=== PATIENT | female | born 1985 | race Caucasian/White ===

== ENCOUNTER 2017-07-04 19:04 | Emergency (ER) | payer MEDICAID, OTHER ==
[2017-07-04 19:36] VITALS: BMI 25.0
--- NOTE | 2017-07-05 01:14 | OBHP ---
Datetime: 07/04/2017 20:04 IP Adm Impression: , intrauterine ; No Active Labor IP Admit Plan: Observation/Evaluation Admit Comment, IP Provider: 32 yo F, , IUP at 20.2 weeks by LMP (02/13/17), u/s unknown. CC: pt slipped on some water that had leaked out of her washing machine apparatus; fell on left si de of body about 2-3 hours ago. care - patient unsure of name/exact location of clinic where she gets care. Stat es she is planning on leaving that clinic once her insurance is active. SHUBHAM: 11/19/17 Vaginal bleeding: no Loss of fluid: no movement: yes Contractions: no Cramping: no Unknown all of the following: GBS, blood type, HIV status, HbsAg status, RPR, GC/Chlamydia, rubel la immunity status, PPD, OBHx: 1 prior , delivered at full term via NVD in 2009, as her patient. States she had el evated blood sugar during the last 2 months of that , controlled with diet. Medical Hx: none Surgical Hx: none Social: smoked during first 2 months of current . Denies current tobacco, alcohol, drug, supplement use. Meds: vitamins NKDA ROS: denies headache, dizziness, chest pain, shortness of breath, n/v/d, burning with urination PE: BP: 111/69 Gen: AAO x3, no acute distress CV: S1/S2, RRR Resp: lungs clear to auscultation bilaterally Abd: gravid, +BS Extremities: no edema, mild tenderness to palpation of L knee FHR: 140s Assesment: 1) IUP at 20.2 weeks 2) unknown pre-albertina care/labs 3) unknown type and screen Plan: 1) Type and Screen 2) KleihauerBetke if ab neg 3) Limited OB u/s : assess placenta, estimate weight, amniotic fluid index Plan discussed with Dr. Polk Re-eval 20:17 Maternal blood type A+ OB U/s showed SLIUP at 21 weeks +/- 1w3d, heart rate 147, + movement, anterior placenta (relationship to os: clear, more than 2cm away), cephalic presentation, adequate amniotic fluid. Patient encouraged to keep her next pre- appointment, even if she is still waiting for her in surance and working on switching pre- providers. Strongly advised against delaying further pre-n atal care. Case discussed with Dr. Felicitas Jaimes MD PGY 1. obh addendum: Patient seen and examined by me agree with above assessment and plan. Extremities - PN: Normal Abdomen - PN: Normal Back - PN: Normal Breast - PN: Not Done Lungs - PN: Normal Heart - PN: Normal Thyroid - PN: Not Done Neurologic - PN: Normal HEENT - PN: Normal General - PN: Normal FHR - Baseline A Provider: 140 EGA AdmitDate IP: 20.2 Vital Signs Provider: Reviewed; Within Normal Limits IP Chief Complaint: Trauma/Fall Genitourinary Exam: Not Done DTRs - PN: Not Done
[2017-07-05 02:47] VITALS: BP 111/70; PULSE 87; RESP 16; TEMP 98; O2SAT 100
--- NOTE | 2017-07-05 07:59 | US ---
PROCEDURE: Second trimester ultrasound HISTORY: IUP 20 weeks, pt fell at home LMP 02/13/2017. COMPARISON: None available. TECHNIQUE: Standard protocol for this study/examination. FINDINGS: Cephalic presentation. Anterior Placenta. No evidence of abruption or previa Gestational age derived from LMP 20 weeks 1 day Gestational age derived from the following biometric parameters 21 weeks . Biparietal diameter 5.12 cm Head [id number] cm Abdominal circumference 16.16 cm Femur length 3.25 cm Estimated weight 378 g Calculated cardiac rate 144 beats per min. Closed cervix measuring 4.68 cm IMPRESSION: Twenty weeks 1 day live intrauterine gestation. SHUBHAM based on LMP: 11/20/2017 SHUBHAM based on biometry: 11/14/2017 Concordant results (preliminary interpretation) provided by [facility]. Procedure Completed: 21:58 Preliminary ([facility]) Report: Dictated and Authenticated: 22:27 Final Interpretation: 07:56. July 05, 2017.
== END 2017-07-04 22:30 | disposition home or self-care (01) ==
LOC: H.EROB2 19:04
DX: O26.92 Pregnancy related conditions, unspecified, second trimester (principal); Z04.3 Encounter for examination and observation following other accident; Z3A.21 21 weeks gestation of pregnancy

== ENCOUNTER 2018-06-28 15:06 | Emergency (ER) | payer MEDICAID ==
[2018-06-28 15:07] VITALS: BMI 25.0
[2018-06-28 15:10] VITALS: BP 141/88; PULSE 82; RESP 16; TEMP 97.9; O2SAT 98
--- NOTE | 2018-06-28 16:24 | ED PDOC ---
HPI: Psych/Substance Abuse Time Seen by Provider: 06/28/18 15:12 Chief Complaint (Nursing): Medical Clearance Chief Complaint (Provider): Medical Clearance ED Caveat: Intoxicated History Per: EMS History/Exam Limitations: intoxication Onset/Duration Of Symptoms: Mins (prior to arrival) Current Symptoms Are (Timing): Still Present Additional History Per: Patient Additional Complaint(s): 33 year old female presents via PD for medical and psychiatric clearance. Patient admits to drinking alcohol but offers no complaints, denying suicidal / homicidal ideation, hallucinations, and alcohol abuse. Secondary to intoxicati on, some patient information is limited, but old charts were reviewed along with nursing information. PMD: Caro Villar Past Medical History Reviewed: Historical Data, Nursing Documentation, Vital Signs Vital Signs: Last Vital Signs Temp 97.9 F 06/28/18 15:09 Pulse 82 06/28/18 15:09 Resp 16 06/28/18 15:09 BP 141/88 06/28/18 15:09 Pulse Ox 98 06/28/18 15:09 - Medical History PMH: Depression - Surgical History Surgical History: No Surg Hx - Family History Family History: States: Unknown Family Hx - Social History Current smoker - smoking cessation education provided: Yes (light) Alcohol: Other (yes, but pt denies alchol abuse) Drugs: Denies - Immunization History Hx Tetanus Toxoid Vaccination: No Hx Influenza Vaccination: No Hx Pneumococcal Vaccination: No - Home Medications Home Medications: Ambulatory Orders Medication Instructions Recorded Vit Calc,Iron,Folic 1 tab PO DAILY 07/04/17 [ Vitamins] - Allergies Allergies/Adverse Reactions: Allergies Allergy/AdvReac Type Severity Reaction Status Date / Time No Known Allergies Allergy Verified 06/28/18 15:09 Review of Systems Review Of Systems: ROS cannot be obtained secondary to pt's inabilty to answer questions. Physical Exam - Reviewed Nursing Documentation Reviewed: Yes Vital Signs Reviewed: Yes - Physical Exam Appears: Positive for: No Acute Distress (but appears intoxicated) Head Exam: Positive for: ATRAUMATIC, NORMOCEPHALIC Skin: Positive for: Normal Color. Negative for: Rash Eye Exam: Positive for: Normal appearance ENT: Positive for: Normal ENT Inspection Neck: Positive for: Normal, Painless ROM, Supple Cardiovascular/Chest: Positive for: Regular Rate, Rhythm Respiratory: Positive for: Normal Breath Sounds. Negative for: Accessory Muscle Use, Respiratory Distress Gastrointestinal/Abdominal: Positive for: Normal Exam, Soft. Negative for: Tenderness Back: Positive for: Normal Inspection. Negative for: L CVA Tenderness, R CVA Tenderness, Vertebral Tenderness Extremity: Positive for: Normal ROM Neurologic/Psych: Positive for: Alert, Oriented (x2), Other (slurred speech, alcohol on breath) - Laboratory Results Result Diagrams: 06/28/18 17:26 06/28/18 17:26 - ECG O2 Sat by Pulse Oximetry: 98 (RA) Pulse Ox Interpretation: Normal Medical Decision Making Medical Decision Making: Time: 1551 Initial Impression: medical and psychiatric clearance Initial Plan: --Alcohol serum --CMP --Drug screen --Crisis eval --U-preg --CBC with differential --Accucheck --Urinalysis Previous medical records reviewed and show that pt sees Dr. Ivey for alcohol abuse, but pt denies this. Case discussed with Annmarie plant and equipment worker who requests that the alcohol level be done before evaluation. Pt. evaluated by Annmarie ALFARO who spoke with Dr. Sun and cleared pt. for incarceration. ---- --------- Scribe Attestation: Documented by Jennifer Hughes, acting as a scribe for Jabier Rudd PA-C Provider Scribe Attestation: All medical record entries made by the Scribe were at my direction and personally dictated by me. I have reviewed the chart and agree that the record accurately reflects my personal performance of the history, physical exam, medical decision making, and the department course for this patient. I have also personally directed, reviewed, and agree with the discharge instructions and di sposition. Disposition - Clinical Impression Clinical Impression: Alcohol abuse - Patient ED Disposition Is Patient to be Admitted: No - Disposition Referrals: [facility] [Outside] Disposition: Routine/Home Disposition Time: 18:23 Condition: STABLE Additional Instructions: PATIENT IS MEDICALLY AND PSYCHIATRICALLY CLEARED FOR INCARCERATION LISA VANDA, thank you for letting us take care of you today. Your provider was Suad Bishop MD and you were treated for ETOH, MED CLEARANCE. The emergency medical care you received today was directed at your acute symptoms. If you were prescribed any medication, please fill it and take as directed. It may take several days for your symptoms to resolve. Return to the Emergency Department if your symptoms worsen, do not improve, or if you have any other problems. Please contact your doctor or call one of the physicians/clinics you have been referred to that are listed on the Patient Visit Information form that is included in your discharge packet. Bring any paperwork you were given at discharge with you along with any medications you are taking to your follow up visit. Our treatment cannot replace ongoing medical care by a primary care provider outside of the emergency department. Thank you for allowing the [facility] team to be part of your care today. If you had an X-Ray or CT scan: A Radiologist will review the ED reading if any change in treatment is needed we will contact you. If you had a blood, urine, or wound culture: It will take several days for the results, if any change in treatment is needed we will contact you. If you had an STI test: It will take 48 hours for the results. Please call after 1 week if you have not heard back. Instructions: Alcohol Abuse and Alcoholism (DC) Forms: [employer] (Thai)
[2018-06-28 17:39] LABS: BASO % 0.4 % (0.0-2.0); EOS # 0.3 K/uL (0.0-0.7); EOS % 2.9 % (0.0-4.0); HEMOGLOBIN 13.9 g/dL (12.0-16.0); LYMPH # 2.9 K/uL (1.0-4.3); LYMPH % 33.4 % (20.0-40.0); MEAN CELL VOLUME 88.6 fl (81.0-99.0); MEAN CORPUSCULAR HEMOGLOBIN 29.5 pg (27.0-31.0); MEAN CORPUSCULAR HGB CONC 33.3 g/dL (33.0-37.0); MEAN PLATELET VOLUME 6.7 fl (7.2-11.7); MONO # 0.6 K/uL (0.0-0.8); MONO % 7.1 % (0.0-10.0); NEUT # 4.9 K/uL (1.8-7.0); NEUT % 56.2 % (50.0-75.0); RBC 4.69 Mil/uL (3.80-5.20); RED CELL DISTRIBUTION WIDTH 16.2 % (11.5-14.5); WHITE BLOOD COUNT 8.8 K/uL (4.8-10.8)
[2018-06-28 17:53] LABS: ALB/GLOB RATIO 1.2 (1.0-2.1); ALBUMIN 4.3 g/dL (3.5-5.0); ALT/SGPT 36 U/L (9-52); AST/SGOT 36 U/L (14-36); BLOOD UREA NITROGEN 8 mg/dl (7-17); CALCIUM 9.2 mg/dL (8.4-10.2); GFR NON-AFRICAN AMERICAN > 60
[2018-06-28 17:55] LABS: SQUAMOUS EPITHIAL 3 /hpf (0-5); URINE BACTERIA RARE (<OCC); URINE BILIRUBIN NEGATIVE (NEGATIVE); URINE BLOOD MODERATE (NEGATIVE); URINE CLARITY SLIGHTY-CLOUDY (Clear); URINE COLOR YELLOW (YELLOW); URINE GLUCOSE (UA) NEG (Normal); URINE HYALINE CAST 0-2 /hpf (0-2); URINE LEUKOCYTE ESTERASE NEG Leu/uL (Negative); URINE PROTEIN NEGATIVE (NEGATIVE); URINE UROBILINOGEN 0.2-1.0 mg/dL (0.2-1.0)
[2018-06-28 18:17] LABS: BARBITURATES, UR NEGATIVE (NEGATIVE); BENZODIAZEPINES, UR NEGATIVE (NEGATIVE); OPIATES, UR NEGATIVE (NEGATIVE); PHENCYCLIDINE, UR NEGATIVE (NEGATIVE)
== END 2018-06-28 19:57 ==
LOC: H.ER 15:06
DX: F10.129 Alcohol abuse with intoxication, unspecified (principal)